=== PATIENT | male | born 1970 | race Caucasian/White ===

== ENCOUNTER 2017-06-07 05:16 | Day surgery (SDC) | payer MEDICAID ==
[2017-06-06 09:47] LABS: BASOPHILS 0.2 % (0-2); EOSINOPHILS 0.8 % (0-7); HEMATOCRIT 42.6 % (42.0-54.0); HEMOGLOBIN 13.8 g/dL (13.5-17.5); IMMATURE GRANULOCYTES 0.1 % (0-5); LYMPHOCYTES 21.4 % (15-50); MCH 28.4 pg (26.0-34.0); MCHC 32.4 g/dL (31.0-37.0); MCV 87.7 fL (80.0-100.0); MEAN PLATELET VOLUME 8.8 fL (7.4-10.4); MONOCYTES 9.8 % (2-11); NEUTROPHILS 67.7 % (40-80); PLATELET COUNT 287 10x3/uL (130-400); RBC 4.86 10x6/uL (4.20-6.10); RDW 14.9 % (11.5-14.5); WBC 10.7 10x3/uL (4.8-10.8)
[2017-06-06 10:01] LABS: ANION GAP 12.4 mmol/L (8-16); CALCIUM 9.5 mg/dL (8.5-10.1); CARBON DIOXIDE 25.9 mmol/L (21.0-32.0); CREATININE - SERUM 1.3 mg/dL (0.6-1.3); POTASSIUM - SERUM 4.3 mmol/L (3.5-5.1)
[~2017-06-07] VITALS: Ht 170.2 cm; Wt 87.5 kg
[~2017-06-07 05:16] MED LIST: GLUCOPHAGE500 MG PO
[2017-06-07] MEDS ORDERED: NEURONTIN 300300 MG PO (05:59)
[2017-06-07] MEDS ORDERED: NEURONTIN600 MG PO (06:00)
[2017-06-07] MEDS ORDERED: PROTONIX40 MG PO (06:00)
[2017-06-07] MEDS ORDERED: HYDROCHLOROTHIA25 MG PO (06:01)
[2017-06-07] MEDS ORDERED: ZOLOFT100 MG PO (06:01)
[2017-06-07] MEDS ORDERED: AZOR 5-40 MG TA1 TAB PO (06:01)
[2017-06-07] MEDS ORDERED: GLYBURIDE5 M1 PO (06:02)
[2017-06-07] MEDS ORDERED: TRAZODONE HCL50 MG PO (06:02)
[2017-06-07] MEDS ORDERED: EFFEXOR75 MG PO (06:02)
[2017-06-07 06:03] VITALS: BP 135/73; Ht 170.2 cm; Wt 87.5 kg
[2017-06-07] MEDS ORDERED: HYDROXYZINE HCL50 MG PO (09:27)
[2017-06-07] MEDS ORDERED: PERCOCET 5-3251 TAB PO (09:27)
--- NOTE | 2017-06-07 12:55 | NUR ---
1100 IV DC WITH CATHER TIP INTACT
--- NOTE | 2017-06-07 15:00 | OP ---
PATIENT NAME: Libia LAWRENCE MEDICAL RECORD: [id number] :74 LOCATION:[facility] ADMISSION DATE: SURGEON: KEIKO MACHADO DO DATE OF OPERATION: 06/07/2017 PROCEDURES PERFORMED: Left shoulder arthroscopy, distal clavicle resection, subacromial decompression, biceps tenodesis, and rotator cuff debridement. PREOPERATIVE DIAGNOSES: Left shoulder pain with partial rotator cuff tear, subacromial impingement, and AC joint arthritis. POSTOPERATIVE DIAGNOSES: Left shoulder pain with partial rotator cuff tear, subacromial impingement, AC joint arthritis, and SLAP tear type 2. SURGEON: Keiko Machado DO INDICATIONS: Mr. Lawrence is a 46-year-old male who presented to my office with left shoulder pain. He had an MRI that showed a partial rotator cuff tear. He had tried physical therapy and injections, which did not help. At the behest of the patient, he wanted to have surgery to have it fixed. Once he had told me this, I agreed to do the surgery, having failed nonoperative management. The patient was consented for the procedures of left shoulder arthroscopy, possible rotator cuff tear with subacromial decompression, distal clavicle resection, and biceps tenodesis. DESCRIPTION OF PROCEDURE: The patient was given a block in the preoperative area by anesthesia. Once this was done, the patient was taken to the operative suite, placed in the right lateral decubitus position, positioned, given general anesthetic, and was prepped. The left shoulder was prepped and draped in sterile fashion. Time-out was performed and everyone was in agreement with correct site and side. The patient was given clindamycin preoperatively. Once this was done, a 60 cc syringe on a spinal needle with normal saline was introduced into the shoulder joint itself to insufflate the joint. The #11 blade scalpel was then used to make a posterior portal and the scope trocar was placed into the shoulder joint itself. The scope was entered into the joint and a SLAP tear was seen immediately as well as fraying of the subscapularis. The diagnostic arthroscopy was done and anterior portal was made. A shaver was placed in and a probe. The biceps tendon was lifted off the attachment to the labrum, which was seen to show degenerative tear at superior labrum, anterior to posterior, type 2 tear. Once this was done, it seemed the humerus was rotated to see the extent of the subscapularis tear, which did not seem to be significant and the fraying was debrided. The supraspinatus was then probed as well and lifted. There was no significant tearing seen on the articular side of that tendon and the joint itself was also viewed and seemed to have no chondral damage whatsoever. Inferior pouch was also seen and pictures were taken. No loose bodies were seen there. Once this was done, the BirdBeak was placed through the anterior portal and the biceps tendon was tagged with a suture lasso and then a burner was used to do the biceps tenotomy at the junction of the labrum and the long head of the biceps. Then, the scope was entered in the subacromial space and the rotator cuff was inspected on the bursal side, which was not seen to have a tear. Certainly, no full-thickness tears were seen nor any partial thickness was seen on the supraspinatus. The attention was then drawn to the acromion and was debrided first with the burner to get a clear picture of it as well as the AC joint itself. The AC joint was seen to be very narrowed and not having much space. The bur was then taken once the lateral OPERATIVE REPORT [id number] Libia LAWRENCE portal was established and a subacromial decompression was performed, taking off the spur of the acromion as well as opening the AC joint to 7 mm, taking some distal clavicle as well as a small portion of the acromion in order to open the joint up. Once this was done, a shaver was put in and a bursectomy was performed. Again, the rotator cuff was inspected and we did not see any full-thickness tears or even partial-thickness tears of the supraspinatus. Once this was done, the scope was removed and attention was then drawn to the bicep tenodesis site. A small incision was made just at where the pectoralis major tendon insertion of the humerus. Blunt dissection was made down to the humerus itself and the bicep tendon was pulled from that incision. Then, a whipstitch with the suture and a button was placed on that. A drill was then used to make a unicortical hole in the humerus for placement of the bicep tendon and the suture was toggled. The button flipped in the intramedullary canal and suture was toggled to tighten up the biceps. A free needle was then used to use one of the free end of the whipstitch sutures, sutured to the biceps tendon, and a knot was tied on top of the tendon itself, securing it to the bone. The excess tendon and the suture were cut at that time. The wound was then irrigated copiously with normal saline and the skin was closed with 2-0 Vicryl inverted interrupted and then 4-0 Monocryl was run subcuticularly over that site. At the shoulder, 3 portals were then closed with simple and inverted interrupted stitch using 4-0 Monocryl. Dermabond was then placed over the biceps tenodesis site and Steri-Strips were placed over the portal sites of the shoulder. Adaptic, 4 x 4s, and Tegaderm were placed over each of the sites. The patient was placed in a sling, awakened, and taken to recovery in stable condition. Blood loss was minimal. TRANSINT:[id number] Voice Confirmation ID: [id number] DOCUMENT ID: [id number] KEIKO MACHADO DO at 1500 CC: [id number] DICTATION DATE: 06/07/17 0937 MASTER BREWER: 06/07/17 1239 [facility] 06/07/17 [facility] [address] [place] [address]
== END 2017-06-07 12:00 | disposition home or self-care (01) ==
LOC: D.OPS 05:16 → D.PAN 07:30 → D.OPS 12:00
PROVIDERS: Anesthesiology
DX: M75.102 Unspecified rotator cuff tear or rupture of left shoulder, not specified as traumatic (principal); M25.812 Other specified joint disorders, left shoulder; M19.012 Primary osteoarthritis, left shoulder; M25.512 Pain in left shoulder; I10 Essential (primary) hypertension; E11.9 Type 2 diabetes mellitus without complications; Z01.812 Encounter for preprocedural laboratory examination

== ENCOUNTER → 2017-11-14 10:54 | Outpatient (CLI) | payer MEDICAID ==
[2017-06-07 06:03] VITALS: BMI 30.3
[~2017-11-14 10:54] MED LIST changes: +AZOR 5-40 MG TA1 TAB PO; +EFFEXOR75 MG PO; +GLYBURIDE5 M1 PO; +HYDROCHLOROTHIA25 MG PO; +HYDROXYZINE HCL50 MG PO; +NEURONTIN 300300 MG PO; +NEURONTIN600 MG PO; +PERCOCET 5-3251 TAB PO; +PROTONIX40 MG PO; +TRAZODONE HCL50 MG PO; +ZOLOFT100 MG PO
== END | disposition home or self-care (01) ==
LOC: D.MRI 10:54
DX: M75.112 Incomplete rotator cuff tear or rupture of left shoulder, not specified as traumatic (principal)

== ENCOUNTER → 2018-02-04 07:28 | Outpatient (CLI) | payer MEDICAID ==
[2017-06-07 06:03] VITALS: BMI 30.3
== END | disposition home or self-care (01) ==
LOC: D.US 07:28
DX: R10.84 Generalized abdominal pain (principal)

== ENCOUNTER 2018-03-27 06:05 | Day surgery (SDC) | payer MEDICAID ==
[2018-03-25 11:33] LABS: HEMATOCRIT 43.8 % (42.0-54.0); HEMOGLOBIN 14.7 g/dL (13.5-17.5); MCH 28.9 pg (26.0-34.0); MCHC 33.6 g/dL (31.0-37.0); MCV 86.2 fL (80.0-100.0); MEAN PLATELET VOLUME 9.1 fL (7.4-10.4); RBC 5.08 10x6/uL (4.20-6.10); RDW 12.9 % (11.5-14.5); WBC 11.7 10x3/uL (4.8-10.8)
[2018-03-25 11:47] LABS: ANION GAP 10.8 mmol/L (8-16); CARBON DIOXIDE 27.7 mmol/L (21.0-32.0); CREATININE - SERUM 1.6 mg/dL (0.6-1.3); POTASSIUM - SERUM 4.5 mmol/L (3.5-5.1)
[~2018-03-27] VITALS: Ht 170.2 cm; Wt 88.0 kg
--- NOTE | ~2018-03-27 | OP ---
PATIENT NAME: Libia LAWRENCE MEDICAL RECORD: [id number] :74 LOCATION:[facility] ADMISSION DATE: SURGEON: DARIAN PALACIO MD DATE OF OPERATION: 03/27/2018 PREOPERATIVE DIAGNOSIS: Recurrent rotator cuff tear of the left shoulder with residual impingement. POSTOPERATIVE DIAGNOSIS: Recurrent rotator cuff tear of the left shoulder with residual impingement. PROCEDURES: 1. Arthroscopic rotator cuff repair. 2. Subacromial decompression with acromioplasty and bursectomy. SURGEON: Darian Palacio MD ANESTHESIA: General. INTRAOPERATIVE COMPLICATIONS: None. SUMMARY OF PATHOLOGIC FINDINGS: Unfortunately, the patient did indeed have a rotator cuff tear at the area just posterior to the biceps groove. Biceps tenodesis had previously been performed; however, the patient did have a large amount of impinging acromion. OPERATIVE SUMMARY IN DETAIL: After obtaining the appropriate preoperative orthopedic surgery consent as well as anesthetic consultation, evaluation and clearance, the patient was brought to the operating room and placed on the operating table in supine position. After general laryngeal mask airway was administered the patient was placed in right lateral decubitus position. All pressure points well padded to include down leg peroneal pad as well as axillary roll. The patient was held firmly to the operating table using the vacuum pack suction system. The patient's left upper extremity and shoulder were then prepped and draped in routine sterile fashion. The patient's arm was held in the Arthrex holding device, 30 degrees of forward flexion, 30 degrees of abduction with 10 pounds of traction laterally. Arthroscopy was established in the glenohumeral joint from the posterior portal. Diagnostic arthroscopy did reveal the patient to have a full thickness rotator cuff tear as described above. No substantial intra-articular pathology. Transarthroscopic rotator cuff portal was created through which the undersurface of the rotator cuff was debrided back to viable appearing rotator cuff parts. Arthroscopy was then established in the subacromial space. While in the subacromial space, [place] tissue ablation system was utilized to denude the undersurface of the acromion of all soft tissue elements. A 5-0 barrel bur was used to perform acromioplasty at the level of acromioclavicular joint. Attention was then returned to the rotator cuff. Further decortication of the supraspinatus tendinous footprint was carried out with a resector and a 5.0 barrel bur. A #2 Arthrex FiberTape was then placed in inverted mattress fashion anchored laterally with a 5.5 SwiveLock from Arthrex. Secondarily, the small leaflet anteriorly, the #2 FiberWire from the previously placed anchor was then passed and it too was anchored with a 4.75 SwiveLock. Having completed the rotator cuff repair, arthroscopy portals were closed in routine interrupted fashion using 4-0 Prolene. Sterile dressings were applied. The patient was awakened and taken to the recovery room in stable condition. All final needle and sponge counts were OPERATIVE REPORT [id number] Libia LAWRENCE correct. TRANSINT:[id number] Voice Confirmation ID: [id number] DOCUMENT ID: [id number] HAKEEM SHAH, DARIAN KIM at 1826 CC: [id number] DICTATION DATE: 03/31/18 0925 RELISH MAKER: 03/31/[address] [facility] 03/27/18 [id number] [place] [address]
[~2018-03-27 06:05] MED LIST changes: +HYDROCODONE-APA1 TAB PO
[2018-03-27 06:51] VITALS: Ht 170.2 cm; Wt 88.0 kg
== END 2018-03-27 11:30 | disposition home or self-care (01) ==
LOC: D.OPS 06:05
PROVIDERS: Anesthesiology
DX: M75.122 Complete rotator cuff tear or rupture of left shoulder, not specified as traumatic (principal); M75.42 Impingement syndrome of left shoulder; Z01.812 Encounter for preprocedural laboratory examination

== ENCOUNTER → 2018-07-03 10:38 | Outpatient (CLI) | payer MEDICAID ==
[2018-03-27 06:51] VITALS: BMI 30.4
== END | disposition home or self-care (01) ==
LOC: D.MRI 10:38
DX: M75.102 Unspecified rotator cuff tear or rupture of left shoulder, not specified as traumatic (principal)

== ENCOUNTER → 2018-10-13 14:55 | Outpatient (CLI) | payer MEDICAID ==
[2018-03-27 06:51] VITALS: BMI 30.4
== END | disposition home or self-care (01) ==
LOC: D.MRI 14:55
DX: M23.303 Other meniscus derangements, unspecified medial meniscus, right knee (principal)

== ENCOUNTER 2019-02-02 07:15 | Day surgery (SDC) | payer MEDICAID ==
[2019-01-30 10:26] LABS: MCH 28.6 pg (26.0-34.0); MCHC 32.6 g/dL (31.0-37.0); MCV 87.8 fL (80.0-100.0); MEAN PLATELET VOLUME 8.6 fL (7.4-10.4); RBC 4.9 10x6/uL (4.20-6.10); RDW 14.2 % (11.5-14.5); WBC 8.9 10x3/uL (4.8-10.8)
[2019-01-30 10:39] LABS: CALC OSMOLALITY 279 mosm/kg (275-300); CALCIUM 8.8 mg/dL (8.5-10.1); CARBON DIOXIDE 26.8 mmol/L (21.0-32.0); CHLORIDE - SERUM 106 mmol/L (98-107); CREATININE - SERUM 1.1 mg/dL (0.6-1.3); GLUCOSE 67 mg/dL (74-106); SODIUM 141 mmol/L (136-145); UREA NITROGEN 16 mg/dL (7-18); eGFR NON AFRICAN AMERICAN 76 mL/min (90-120)
[~2019-02-02] VITALS: Ht 170.2 cm; Wt 95.3 kg
[2019-02-02] MEDS ORDERED: JANUMET 50-5001 EAC1 PO (07:43)
[2019-02-02] MEDS ORDERED: SEROQUEL25 MG PO (07:44)
[2019-02-02 07:45] VITALS: BP 84/64; Ht 170.2 cm; Wt 95.3 kg
[2019-02-02] MEDS ORDERED: HYDROCODON-ACE1 EA10 PO (11:15)
--- NOTE | 2019-02-02 11:48 | NUR ---
NPA IN RT NARE ON ADMIT
--- NOTE | 2019-02-02 16:08 | NUR ---
1600 VOIDED IN BATHROOM. DENIES PAIN. DRESSING CDI. INSTRUCTIONS GIVEN AND IV REMOVED. PT INSTRUCTED ON HOW TO USE WALKER
--- NOTE | 2019-02-09 07:51 | OP ---
PATIENT NAME: Libia LAWRENCE MEDICAL RECORD: [id number] :74 LOCATION:D[facility] ADMISSION DATE: SURGEON: DARIAN PALACIO MD DATE OF OPERATION: 02/02/2019 PREOPERATIVE DIAGNOSES: 1. Right lateral meniscus tear. 2. Synovitis 3. Chondromalacia. POSTOPERATIVE DIAGNOSES: 1. Right lateral meniscus tear. 2. Synovitis 3. Chondromalacia. PROCEDURES: 1. Right knee arthroscopy with arthroscopic partial lateral meniscectomy. 2. Arthroscopic synovectomy. 3. Arthroscopic chondroplasty. SURGEON: Darian Palacio MD ANESTHESIA: General. INTRAOPERATIVE COMPLICATIONS: None. SUMMARY OF PATHOLOGIC FINDINGS: The patient had substantial synovitis likely from the torn meniscus as well as chondromalacia of patellofemoral joint. OPERATIVE SUMMARY IN DETAIL: After obtaining the appropriate preoperative orthopedic surgery consent as well as anesthetic consultation, evaluation and clearance, the patient was brought to the operating room and placed on the operating table in supine position. After general laryngeal mask airway was administered, tourniquet was placed about the proximal aspect of the right lower extremity. Right lower extremity was then prepped and draped in routine sterile fashion. The leg was elevated and exsanguinated, tourniquet inflated to 350 mmHg. Routine inferolateral portal was established followed by superomedial portal and inferomedial portal. Diagnostic arthroscopy revealed the above findings. Attention was first turned to the lateral meniscal tear. Combination of arthroscopic meniscotomes as well as arthroscopic resector were utilized to debride the patient's lateral meniscus. No significant chondromalacia was seen in the lateral compartment or the medial compartment. Attention was turned to the patellofemoral joint. Chondroplasty was performed of the patellofemoral joint for the trochlear groove, taken down any areas of unstable articular cartilage and debriding it back to smooth cartilaginous borders. The suprapatellar pouch as well as the lateral gutters had substantial amount of synovitis. Arthroscopy was then utilized with the resector to take down substantial amount of the synovitis in both the suprapatellar pouch as well as the lateral gutters. Having completed this, the knee was insufflated with 30 cc of 0.25% Marcaine with epinephrine as well as 80 mg of Depo-Medrol. Arthroscopy portals were closed in routine interrupted fashion using 4-0 Prolene. Sterile dressings were applied. The patient was awakened, taken to recovery room in stable condition. All final needle and sponge counts were correct. TRANSINT:[id number] Voice Confirmation ID: [id number] DOCUMENT ID: [id number] OPERATIVE REPORT [id number] Libia LAWRENCE MD, DARIAN KIM at 0751 CC: [id number] DICTATION DATE: 02/06/19 1254 MANUFACTURING TEST TECHNICIAN: 02/06/19 1615 [facility] 02/02/[address] [address]
== END 2019-02-02 16:00 | disposition home or self-care (01) ==
LOC: D.OPS 07:15 → D.PAN 07:30 → D.OPS 09:30
PROVIDERS: Anesthesiology; ATTEND Orthopaedic Surgery
DX: S83.281A Other tear of lateral meniscus, current injury, right knee, initial encounter (principal); M65.9 Synovitis and tenosynovitis, unspecified; M22.41 Chondromalacia patellae, right knee; Z01.812 Encounter for preprocedural laboratory examination

== ENCOUNTER → 2019-05-11 17:14 | Outpatient (CLI) | payer OTHER ==
[2019-02-02 07:45] VITALS: BMI 32.9
[~2019-05-11 17:14] MED LIST changes: +CHLORTHALIDONE50 MG PO; +HYDROCODON-ACE1 EA10 PO; +JANUMET 50-5001 EAC1 PO; +MELOXICAM TAB 15M PO; +SEROQUEL25 MG PO; +TRAZODONE HCL150 MG PO; +TRAZODONE TAB 50M PO; +ZOCOR20 MG PO
[2019-05-13 12:57] LABS: PROTEIN - BODY FLUID 4.9 G/DL
[2019-05-13 14:39] LABS: MACROPHAGES BF 4 %; NEUT - BF 85 %
[2019-05-18 17:08] LABS: AEROBE ID Final report (())
== END | disposition home or self-care (01) ==
LOC: D.LABREF 17:14
PROVIDERS: ATTEND Orthopaedic Surgery
DX: M25.561 Pain in right knee (principal); M25.461 Effusion, right knee

== ENCOUNTER 2019-05-19 08:00 | Outpatient (CLI) | payer MEDICARE ==
[2019-02-02 07:45] VITALS: Wt 95.3 kg
[~2019-05-19 08:00] MED LIST changes: -CHLORTHALIDONE50 MG PO; -MELOXICAM TAB 15M PO; -TRAZODONE HCL150 MG PO; -TRAZODONE TAB 50M PO; -ZOCOR20 MG PO
[2019-05-19] MEDS ORDERED: ZOCOR20 MG PO (13:07)
[2019-05-19 14:29] LABS: HEMATOCRIT 43.1 % (42.0-54.0); HEMOGLOBIN 14.9 g/dL (13.5-17.5); MCH 29.6 pg (26.0-34.0); MCHC 34.6 g/dL (31.0-37.0); MCV 85.5 fL (80.0-100.0); MEAN PLATELET VOLUME 8.8 fL (7.4-10.4); RBC 5.04 10x6/uL (4.20-6.10); RDW 13.7 % (11.5-14.5); WBC 14.3 10x3/uL (4.8-10.8)
[2019-05-19 14:41] LABS: ANION GAP 13.9 mmol/L (8-16); CALCIUM 9.1 mg/dL (8.5-10.1); CARBON DIOXIDE 28.2 mmol/L (21.0-32.0); CREATININE - SERUM 1.5 mg/dL (0.6-1.3); POTASSIUM - SERUM 4.1 mmol/L (3.5-5.1)
[2019-05-27] MEDS ORDERED: CHLORTHALIDONE50 MG PO (13:24)
[2019-05-27] MEDS ORDERED: TRAZODONE TAB 50M PO (13:25)
[2019-05-27] MEDS ORDERED: TRAZODONE HCL150 MG PO (13:25)
[2019-05-27] MEDS ORDERED: MELOXICAM TAB 15M PO (13:26)
== END 2019-05-19 08:01 | disposition home or self-care (01) ==
LOC: D.OPS 08:00 → EDSTATUS 05-21 11:45 → D.OPS 05-21 11:45 → D.PAN 05-21 11:45
PROVIDERS: Anesthesiology; ATTEND Orthopaedic Surgery
DX: M00.861 Arthritis due to other bacteria, right knee (principal)

== ENCOUNTER 2019-05-28 09:50 | Day surgery (SDC) | payer MEDICARE ==
[~2019-05-28] VITALS: Ht 170.2 cm; Wt 95.3 kg
[~2019-05-28 09:50] MED LIST changes: +CHLORTHALIDONE50 MG PO; +MELOXICAM TAB 15M PO; +TRAZODONE HCL150 MG PO; +TRAZODONE TAB 50M PO; +ZOCOR20 MG PO
[2019-05-28 09:57] LABS: CALCIUM 9.4 mg/dL (8.5-10.1); CARBON DIOXIDE 30.9 mmol/L (21.0-32.0); CREATININE - SERUM 1.4 mg/dL (0.6-1.3); POTASSIUM - SERUM 4.9 mmol/L (3.5-5.1)
[2019-05-28 10:15] VITALS: BP 119/78; Ht 170.2 cm; Wt 95.3 kg
[2019-05-28 10:48] LABS: BASOPHILS 0.2 % (0-2); EOSINOPHILS 3.4 % (0-7); HEMOGLOBIN 13.5 g/dL (13.5-17.5); IMMATURE GRANULOCYTES 0.2 % (0-5); LYMPHOCYTES 15.8 % (15-50); MCH 29.1 pg (26.0-34.0); MCHC 33.8 g/dL (31.0-37.0); MCV 86.2 fL (80.0-100.0); MEAN PLATELET VOLUME 9.2 fL (7.4-10.4); MONOCYTES 9.6 % (2-11); NEUTROPHILS 70.8 % (40-80); PLATELET COUNT 283 10x3/uL (130-400); RBC 4.64 10x6/uL (4.20-6.10); RDW 13.6 % (11.5-14.5); WBC 12.1 10x3/uL (4.8-10.8)
[2019-05-28] MEDS ORDERED: HYDROCODON-ACE1 EA10 PO (14:04)
[2019-05-28 15:33] LABS: NEUT - BF 95 %
--- NOTE | 2019-05-28 16:25 | NUR ---
PIV DC'D WITH TIP INTACT. DISCHARGE INSTRUCTIONS REVIEWED WITH PATIENT. PATIENT EATING CUP OF JELLO, SITTING ON SIDE OF BED. ASSISTED PATIENT TO DRESS IN PERSONAL CLOTHING 1645 DISCHARGED HOME VIA WHEELCHAIR TO PRIVATE VEHICLE WITH SON-IN-LAW
--- NOTE | 2019-05-31 14:19 | OP ---
PATIENT NAME: JOCELIN LAWRENCE JR MEDICAL RECORD: [id number] :74 LOCATION:[facility] ADMISSION DATE: SURGEON: DARIAN PALACIO MD DATE OF OPERATION: 05/28/2019 PREOPERATIVE DIAGNOSIS: Septic arthritis of the right knee. POSTOPERATIVE DIAGNOSIS: Septic arthritis of the right knee. PROCEDURE: Arthroscopic irrigation and debridement of septic arthritis of the right knee. SURGEON: Darian Palacio MD ANESTHESIA: General. INTRAOPERATIVE COMPLICATIONS: None. SUMMARY OF PATHOLOGIC FINDINGS: The patient did have what appeared to be some residual infection. INDICATIONS: This is a 48-year-old gentleman with some degree of mental health issue who had a swollen knee aspirate did show gram-positive cocci, which has essentially grown out a staph organism. This patient has been very evasive about coming to the operating room and has been on oral antibiotics for approximately 14 days. He finally came to the operating room and would not stay postoperatively. We agreed to try irrigation with oral antibiotics as the organism does seem sensitive to the antibiotics he is taking. OPERATIVE SUMMARY IN DETAIL: After obtaining the appropriate preoperative orthopedic surgery consent as well as anesthetic consultation, evaluation and clearance, the patient was brought to the operating room and placed on the operating table in supine position. After adequate general laryngeal mask airway was administered, tourniquet was placed about the proximal aspect of the right lower extremity. Right lower extremity was then prepped and draped in routine sterile fashion. The leg was elevated and exsanguinated, tourniquet was inflated to 350 mmHg. Routine inferolateral portal was established through which a large degree of synovial fluid was collected and sent for synovial fluid analysis. The knee was insufflated and the remainder of the portals were created. Serial and sequential debridement of the entire knee including medial and lateral gutter, suprapopliteal fossa as well as underneath and above the meniscus were all gently debrided using the resector. Total of approximately 12 liters of fluid was run while using a resector to debride and irrigate all portions of the knee. Having completed this, arthroscopy portals were closed in routine interrupted fashion using 4-0 Prolene. Sterile dressings were applied. Tourniquet was deflated. The patient was awakened and taken to recovery room in stable condition. All final needle and sponge counts were correct. TRANSINT:[id number] Voice Confirmation ID: [id number] DOCUMENT ID: [id number] OPERATIVE REPORT [id number] JOCELIN LAWRENCE JR, MD, DARIAN KIM at 1419 CC: [id number] DICTATION DATE: 05/29/19919 MANAGER ORACLE DATABASE: 05/29/19 1100 [facility] 05/28/19 [place] [id number] [place] [id number]
== END 2019-05-28 16:45 | disposition home or self-care (01) ==
LOC: D.OPS 09:50 → D.PAN 12:00 → D.OPS 12:00
PROVIDERS: Anesthesiology; ATTEND Orthopaedic Surgery
DX: M00.061 Staphylococcal arthritis, right knee (principal); Z01.812 Encounter for preprocedural laboratory examination

== ENCOUNTER → 2019-06-03 17:01 | Outpatient (CLI) | payer MEDICARE ==
[2019-05-28 10:15] VITALS: BMI 32.9
[2019-06-03 17:27] LABS: BASOPHILS 0.3 % (0-2); EOSINOPHILS 3.2 % (0-7); HEMATOCRIT 39.1 % (42.0-54.0); HEMOGLOBIN 12.7 g/dL (13.5-17.5); IMMATURE GRANULOCYTES 0.2 % (0-5); LYMPHOCYTES 33.5 % (15-50); MCH 29.1 pg (26.0-34.0); MCHC 32.5 g/dL (31.0-37.0); MCV 89.5 fL (80.0-100.0); MEAN PLATELET VOLUME 9.1 fL (7.4-10.4); MONOCYTES 10.5 % (2-11); NEUTROPHILS 52.3 % (40-80); RBC 4.37 10x6/uL (4.20-6.10); RDW 14.2 % (11.5-14.5); WBC 6.6 10x3/uL (4.8-10.8)
[2019-06-03 17:33] LABS: PLATELET COUNT 67 10x3/uL (130-400)
[2019-06-03 17:34] LABS: ERYTHROCYTE SEDIMENTATION RATE QNS mm/hr (0-15)
[2019-06-03 17:49] LABS: PLATELET ESTIMATE DECREASED
[2019-06-03 17:51] LABS: ANISOCYTOSIS OCC
[2019-06-03 17:52] LABS: ROULEAUX OCC
== END | disposition home or self-care (01) ==
LOC: D.LABREF 17:01
PROVIDERS: ATTEND Clinical Nurse Specialist Family Health
DX: M25.561 Pain in right knee (principal)

== ENCOUNTER 2019-07-02 08:43 | Inpatient (IN) | payer MEDICARE ==
[~2019-07-02] VITALS: Ht 170.2 cm; Wt 95.5 kg
[2019-07-02 09:10] LABS: BASOPHILS 0.4 % (0-2); EOSINOPHILS 2.7 % (0-7); HEMATOCRIT 37.6 % (42.0-54.0); IMMATURE GRANULOCYTES 0.3 % (0-5); LYMPHOCYTES 25.3 % (15-50); MCH 28.8 pg (26.0-34.0); MCHC 31.9 g/dL (31.0-37.0); MCV 90.4 fL (80.0-100.0); MEAN PLATELET VOLUME 8.5 fL (7.4-10.4); MONOCYTES 9.9 % (2-11); NEUTROPHILS 61.4 % (40-80); RBC 4.16 10x6/uL (4.20-6.10); RDW 13.5 % (11.5-14.5); WBC 7.6 10x3/uL (4.8-10.8)
[2019-07-02 09:13] LABS: PLATELET COUNT 344 10x3/uL (130-400)
[2019-07-02 09:23] LABS: ANION GAP 11.6 mmol/L (8-16); CALCIUM 8.9 mg/dL (8.5-10.1); CARBON DIOXIDE 30.7 mmol/L (21.0-32.0); CREATININE - SERUM 1.7 mg/dL (0.6-1.3); POTASSIUM - SERUM 5.3 mmol/L (3.5-5.1)
[2019-07-02 10:03] VITALS: BP 115/71
[2019-07-02 11:56] LABS: PROTEIN - BODY FLUID 5.7 G/DL
[2019-07-02 12:03] LABS: NEUT - BF 92 %
[2019-07-02 12:15] VITALS: BP 129/96
--- NOTE | 2019-07-02 12:15 | NUR ---
PATIENT IN BED WITH IV INTACT. NO COMPLAINTS OR SIGNS OF DISTRESS. VS STABLE. CALL LIGHT WITHIN REACH.
[2019-07-02 12:23] VITALS: BP 125/91
--- NOTE | 2019-07-02 12:45 | NUR ---
PATIENT IN BED WITH IV INTACT. NO COMPLAINTS OR SIGNS OF DISTRESS. FAMILY AT BEDSIDE. CALL LIGHT WITHIN REACH.
--- NOTE | 2019-07-02 14:00 | NUR ---
PATIENT TOLERATED REGULAR DIET AT THIS TIME. IV INTACT. NO COMPLAINTS OR SIGNS OF DISTRESS. FAMILY AT BEDSIDE. CALL LIGHT WITHIN REACH.
[2019-07-02 14:13] VITALS: BP 129/96; Ht 170.2 cm; Wt 95.5 kg
--- NOTE | 2019-07-02 16:30 | NUR ---
PATIENT IN BED WITH IV INTACT. ALERT ORIENTED NO COMPLAINTS. FAMILY AT BEDSIDE. CALL LIGHT WITHIN REACH.
[2019-07-02 17:01] VITALS: BP 120/71
--- NOTE | 2019-07-02 19:00 | NUR ---
BEDSIDE REPORT RECEIVED AND CARE OF PT ASSUMED. PT LYING IN HIGH CHUNG'S POSITION WATCHING TV. IV TO LEFT WRIST PATENT WITH 1/2 NS INFUSING AT 75 ML/HR. DRESSING ON RIGHT KNEE DRY AND INTACT.
--- NOTE | 2019-07-02 19:23 | NUR ---
PATIENT SITTING UP IN BED WITH NO COMPLAINTS AT THIS TIME. IV INTACT. CALL LIGHT WITHIN REACH.
[2019-07-02 20:00] VITALS: BP 116/73
--- NOTE | 2019-07-02 21:28 | NUR ---
HS MEDICATIONS GIVEN TO INCLUDE PERCOCET PO FOR PAIN AND BENADRYL TO HELP SLEEP, PER REQUEST, PER PRN ORDERS. WILL MONITOR FOR EFFECTIVENESS.
--- NOTE | 2019-07-03 03:41 | NUR ---
GAVE PERCOCET PO PER REQUEST FOR PAIN. PT ASKING ABOUT HIS HOME MEDICATIONS....SAYS HE HASN'T SLEPT WELL TONIGHT BECAUSE HE HASN'T BEEN GIVEN HIS HOME MEDS. HOME MEDICATION RECONCILLIATION COMPLETED. WILL REQUEST MD TO ADDRESS IN AM.
[2019-07-03] MEDS ORDERED: SEROQUEL200 MG PO (03:46)
[2019-07-03] MEDS ORDERED: BUSPIRONE HCL7.5 MG PO (03:47)
[2019-07-03 04:00] VITALS: BP 120/83
[2019-07-03 06:01] LABS: HEMATOCRIT 34.3 % (42.0-54.0); HEMOGLOBIN 10.9 g/dL (13.5-17.5); MCH 28.5 pg (26.0-34.0); MCHC 31.8 g/dL (31.0-37.0); MCV 89.6 fL (80.0-100.0); MEAN PLATELET VOLUME 8.6 fL (7.4-10.4); RBC 3.83 10x6/uL (4.20-6.10); RDW 13.3 % (11.5-14.5); WBC 8.6 10x3/uL (4.8-10.8)
[2019-07-03 06:22] LABS: ANION GAP 11.9 mmol/L (8-16); CARBON DIOXIDE 26.2 mmol/L (21.0-32.0); CREATININE - SERUM 1.6 mg/dL (0.6-1.3)
[2019-07-03 06:27] LABS: POTASSIUM - SERUM 4.1 mmol/L (3.5-5.1)
--- NOTE | 2019-07-03 07:29 | NUR ---
BEDSIDE REPORT RECIEVED, ASSUMED CARE. PATIENT IN BED WITH IV INTACT. EYES OPEN WITH NO COMPLAINTS. DENIES ANY NEEDS AT THIS TIME. CALL LIGHT WITHIN REACH.
[2019-07-03 08:15] VITALS: BP 129/89
--- NOTE | 2019-07-03 10:52 | NUR ---
PATIENT SITTING UP IN BED WITH NO COMPLAINTS OR SIGNS OF DISTRESS. STATED NAUSEA IS BETTER. IV INTACT. CALL LIGHT WITHIN REACH.
--- NOTE | 2019-07-03 13:08 | NUR ---
PATIENT SITTING UP ON SIDE OF BED EATING. NO PROBLEMS OR N/V AT THIS TIME. I VINTACT. CALL LIGHT WTHIN REACH.
[2019-07-03 13:56] LABS: ERYTHROCYTE SEDIMENTATION RATE 18 mm/hr (0-15)
[2019-07-03 16:05] VITALS: BP 109/70
[2019-07-03 16:31] LABS: % SATURATION 15 % (15-55); IRON 44 ug/dl (35-150); TOTAL IRON BIND CAPACITY 282 ug/dl (260-445); UNSAT IRON BIND CAPACITY 238 ug/dl (150-375)
[2019-07-03 17:12] VITALS: BP 109/70
--- NOTE | 2019-07-03 18:00 | NUR ---
PATIENT OUT OF SHOWER AND DRESSING AT THIS TIME. ASSISTANCE AT BEDSIDE.
--- NOTE | 2019-07-03 18:20 | NUR ---
PATIENT VOMITTED AGAIN AT THIS TIME. RECIEVED PERCOCET AT 1651. EXPLAINED TO PATIENT COULD POSSIBLY BE VAISHALI NMEDS. VERBALIZED UNDERSTANDING. NO COMPLAINTS OR PROBLEMS NOTED. IV INTACT. CALL IGHT WITHIN REACH.
--- NOTE | 2019-07-03 18:38 | NUR ---
PATIENT SITTING UP IN BED WITH IV INTACT. NO COMPLAINTS. CALL LIGHT WITHIN REACH.
--- NOTE | 2019-07-03 19:00 | NUR ---
BEDSIDE REPORT RECEIVED AND CARE OF PT ASSUMED. PT LYING IN SUPINE POSITION, C/O NAUSEA. PT REMOVED DRESSING ON RIGHT KNEE...INCISIONS CLEAN AND DRY WITH NO DRAINAGE...PT REQUESTS TO LEAVE OFF. IV TO LEFT FA PATENT WITH 1/2 NS INFUSING AT 75 ML/HR.
--- NOTE | 2019-07-03 19:15 | NUR ---
GAVE ZOFRAN PO FOR C/O NAUSEA.
[2019-07-03 20:00] VITALS: BP 125/84
--- NOTE | 2019-07-03 20:39 | NUR ---
COLLECTED URINE FOR ORDERED STUDIES AND DELIVERED TO LAB.
[2019-07-03 20:48] LABS: APPEARANCE CLEAR (CLEAR); BILIRUBIN NEGATIVE (NEGATIVE); COLOR YELLOW (YELLOW); GLUCOSE NEGATIVE (NEGATIVE); KETONE NEGATIVE (NEGATIVE); NITRITE NEGATIVE (NEGATIVE); PROTEIN NEGATIVE (NEGATIVE); UROBILINOGEN NORMAL (NORMAL)
--- NOTE | 2019-07-03 21:04 | NUR ---
HS MEDICATIONS GIVEN WITH SIPS OF LEMON [place]-BILOXI SODA....PT KEPT DOWN APPROX 1 MINUTE AND BEGAN VOMITING.
--- NOTE | 2019-07-03 21:34 | NUR ---
GAVE PHENERGAN 25 MG IM PER VERBAL ORDER FROM KENNEY CARLTON APN FOR NAUSEA / VOMITING.
--- NOTE | 2019-07-03 23:00 | NUR ---
PT RESTING QUIETLY ON RIGHT SIDE WITH EYES CLOSED AND EASY RESPIRATIONS. WILL CONTINUE TO MONITOR FOR NEEDS.
--- NOTE | 2019-07-04 01:20 | NUR ---
PT SLEEPING QUIETLY WITH UNLABORED BREATHING ON RIGHT SIDE. WILL CONTINUE TO MONITOR FOR NEEDS.
[2019-07-04 06:15] LABS: BASOPHILS 0.4 % (0-2); EOSINOPHILS 2.3 % (0-7); HEMATOCRIT 33.5 % (42.0-54.0); HEMOGLOBIN 10.5 g/dL (13.5-17.5); IMMATURE GRANULOCYTES 0.1 % (0-5); LYMPHOCYTES 28.1 % (15-50); MCH 28.2 pg (26.0-34.0); MCHC 31.3 g/dL (31.0-37.0); MCV 90.1 fL (80.0-100.0); MEAN PLATELET VOLUME 8.7 fL (7.4-10.4); MONOCYTES 14.3 % (2-11); NEUTROPHILS 54.8 % (40-80); PLATELET COUNT 253 10x3/uL (130-400); RBC 3.72 10x6/uL (4.20-6.10); RDW 13.3 % (11.5-14.5); WBC 7.4 10x3/uL (4.8-10.8)
[2019-07-04 06:31] LABS: ANION GAP 11.4 mmol/L (8-16); CALCIUM 8.5 mg/dL (8.5-10.1); CARBON DIOXIDE 27.6 mmol/L (21.0-32.0); CREATININE - SERUM 1.5 mg/dL (0.6-1.3)
[2019-07-04 06:33] VITALS: BP 121/68
--- NOTE | 2019-07-04 08:00 | NUR ---
ASSESSMENT PER FLOW SHEET. PT IS WITHOUT DISTRESS.COMPLAINING OF NAUSEA THS AM.MOITOR FOR NEEDS.
--- NOTE | 2019-07-04 08:30 | NUR ---
COMPLAINS OF NAUSEA AND REFUSED BREAKFAST. MEDS ORDERED FOR NAUSEA.MEDS PER PT WHEN NAUSEA RESOLVED
[2019-07-04 09:18] VITALS: BP 113/79; BP 135/67
--- NOTE | 2019-07-04 13:00 | NUR ---
HAS EATEN SOME LUNCH.NAUSEA GETTING BETTER. MONITOR
[2019-07-04 13:33] VITALS: BP 95/63
[2019-07-04 18:07] VITALS: BP 100/65
--- NOTE | 2019-07-04 18:23 | NUR ---
PAIN MEDS ORDERED PER MAR PER PT REQUEST.LESS NAUSEA.CONT PLAN OF CARE
--- NOTE | 2019-07-04 19:00 | NUR ---
BEDSIDE REPORT RECEIVED AND CARE OF PT ASSUMED. PT LYING ON RIGHT SIDE WITH EYES CLOSED. IV TO LEFT FA PATENT WITH 1/2 NS INFUSING AT 100 ML/HR. WILL MONITOR FOR NEEDS.
[2019-07-04 21:04] VITALS: BP 96/65
--- NOTE | 2019-07-04 22:15 | NUR ---
HS MEDICATIONS GIVEN. HELD TRAZADONE 150 MG PO DUE TO PT'S BLOOD PRESSURE BEING LOW. WILL CONTINUE TO MONITOR CLOSELY.
[2019-07-05 00:57] VITALS: BP 105/66
[2019-07-05 04:15] VITALS: BP 95/62
[2019-07-05 07:00] LABS: BASOPHILS 0.3 % (0-2); EOSINOPHILS 3.2 % (0-7); HEMATOCRIT 35.4 % (42.0-54.0); HEMOGLOBIN 11.1 g/dL (13.5-17.5); IMMATURE GRANULOCYTES 0.3 % (0-5); MCH 28.3 pg (26.0-34.0); MCHC 31.4 g/dL (31.0-37.0); MCV 90.3 fL (80.0-100.0); MEAN PLATELET VOLUME 8.6 fL (7.4-10.4); MONOCYTES 14.5 % (2-11); NEUTROPHILS 51.7 % (40-80); PLATELET COUNT 292 10x3/uL (130-400); RBC 3.92 10x6/uL (4.20-6.10); RDW 13.4 % (11.5-14.5); WBC 6.3 10x3/uL (4.8-10.8)
[2019-07-05 07:07] LABS: ANION GAP 9.7 mmol/L (8-16); CALCIUM 9.2 mg/dL (8.5-10.1); CARBON DIOXIDE 31.8 mmol/L (21.0-32.0); CREATININE - SERUM 1.5 mg/dL (0.6-1.3); POTASSIUM - SERUM 4.5 mmol/L (3.5-5.1)
--- NOTE | 2019-07-05 08:00 | NUR ---
ASSESSMENT PER FLOW SHEET. PT IS WITHOUT DISTRESS.MONITOR FOR NEEDS.CALL LIGHT IN REACH
[2019-07-05 08:54] VITALS: BP 110/70
[2019-07-05 13:13] VITALS: BP 114/75
[2019-07-05 16:36] VITALS: BP 112/79
--- NOTE | 2019-07-05 19:00 | NUR ---
BEDSIDE REPORT RECEIVED AND CARE OF PT ASSUMED. IV TO LEFT FA LEAKING. REMOVED WITH CATHETER TIP INTACT. RE-SITED TO LEFT FA USING 20 GUAGE CATHETER IN ONE STICK. IV FLUIDS RE-STARTED. WILL MONITOR FOR NEEDS
--- NOTE | 2019-07-05 19:48 | NUR ---
REMAINS WITHOUT NEEDS,WITHOUT CHANGE.CONT PLAN OF CARE
[2019-07-05 20:31] VITALS: BP 114/72
--- NOTE | 2019-07-05 20:39 | NUR ---
HS MEDICATIONS GIVEN. FSBS 162 THIS CHECK. PT DECLINES SLIDING SCALE INSULIN. WILL CONTINUE TO MONITOR FOR NEEDS.
[2019-07-06 00:57] VITALS: BP 120/72
[2019-07-06 05:08] VITALS: BP 104/66
[2019-07-06 05:45] LABS: C-REACTIVE PROTEIN 0.6 mg/dL (0.0-0.9); CALCIUM 8.9 mg/dL (8.5-10.1); CARBON DIOXIDE 31.8 mmol/L (21.0-32.0); CREATININE - SERUM 1.2 mg/dL (0.6-1.3)
[2019-07-06 05:50] LABS: POTASSIUM - SERUM 3.8 mmol/L (3.5-5.1)
[2019-07-06 06:12] LABS: BASOPHILS 0.3 % (0-2); EOSINOPHILS 2.7 % (0-7); HEMATOCRIT 34.3 % (42.0-54.0); HEMOGLOBIN 10.7 g/dL (13.5-17.5); IMMATURE GRANULOCYTES 0.4 % (0-5); LYMPHOCYTES 30.1 % (15-50); MCH 27.9 pg (26.0-34.0); MCHC 31.2 g/dL (31.0-37.0); MCV 89.3 fL (80.0-100.0); MEAN PLATELET VOLUME 8.6 fL (7.4-10.4); MONOCYTES 12.8 % (2-11); NEUTROPHILS 53.7 % (40-80); PLATELET COUNT 313 10x3/uL (130-400); RBC 3.84 10x6/uL (4.20-6.10); RDW 13.3 % (11.5-14.5); WBC 7.7 10x3/uL (4.8-10.8)
[2019-07-06 06:36] LABS: ERYTHROCYTE SEDIMENTATION RATE 12 mm/hr (0-15)
--- NOTE | 2019-07-06 07:30 | NUR ---
PT RESTING IN BED WITH EYES CLOSED. AWAKENS WITH NAME CALLED. RESP EVEN AND UNLABORED. VOICES PAIN 5/10 AT THIS TIME. IV TO LEFT FOREARM WITH 1/2 NS @ 100ML/HR INFUSING VIA PUMP. SITE WITHOUT REDNESS OR EDEMA. PT DENIES FURTHER NEEDS A THIS TIME. CL WITHIN REACH. ENCOURAGED TO CALL WITH NEEDS. CONTINUE POC
[2019-07-06] MEDS ORDERED: HYDROCODON-ACE1 EA10 PO (07:58)
[2019-07-06 08:24] VITALS: BP 116/82
--- NOTE | 2019-07-06 10:50 | OP ---
PATIENT NAME: JOCELIN LAWRENCE JR MEDICAL RECORD: [id number] :74 LOCATION:[id number] ADMISSION DATE:07/02/19 SURGEON: DARIAN PALACIO MD DATE OF OPERATION: 07/02/2019 PREOPERATIVE DIAGNOSIS: Infected right knee. POSTOPERATIVE DIAGNOSIS: Infected right knee. PROCEDURES: Arthroscopic I&D of infected right knee to include synovectomy complete as well as irrigational debridement. SURGEON: Darian Palacio MD FULFILLMENT REPRESENTATIVE: DERRICK Bueno INTRAOPERATIVE COMPLICATIONS: None. SUMMARY OF PATHOLOGIC FINDINGS: The patient did have the suprapopliteal phlegmon as well as phlegmon in the medial and lateral gutters. Previous cultures had shown the patient to have 2 different types of Staph organisms. INDICATIONS: This is a 48-year-old gentleman. He has been very difficult to get to agree to further operative intervention. At this point, we told him that he needed to come in for debridement as well as IV antibiotics. This has taken several weeks to get him to agree to. In spite of the fact that he had culture Gram-positive organisms in his right knee, what was found today at the operative intervention was consistent with underlying infection in his knee. No meniscal tearing was noted. No substantial chondromalacia was noted; however, he did have intra-articular phlegmon. OPERATIVE SUMMARY IN DETAIL: After obtaining the appropriate preoperative orthopedic surgery consent as well as anesthetic consultation, evaluation and clearance, the patient was brought to the operating room and placed on operating table in supine position. After general laryngeal mask airway was administered, tourniquet was placed on the proximal aspect of the right lower extremity. Right lower extremity was elevated, it was not exsanguinated, tourniquet was inflated to 350 mmHg. Routine inferolateral portal was established followed by superomedial portal. At the time of portal entry, synovial fluid was obtained for synovial fluid analysis, aerobic and anaerobic culture along with AFP and fungal. These were sent to the laboratory thusly. At this point, the inferolateral portal was established and serial and sequential debridement as well as synovectomy was done for the entire knee to include debridement under and above both medial and lateral meniscus as well as the medial and lateral meniscus as well as the suprapopliteal recess. All phlegmon appearing material was taken down and approximately 12 liters of fluid was irrigated through the knee in entirety. At this point, arthroscopy portals were closed in routine interrupted fashion. Sterile dressings were applied. Tourniquet was deflated. The patient was awakened and taken to the recovery room in stable condition. All final needle and sponge counts were correct. TRANSINT:[id number] Voice Confirmation ID: [id number] DOCUMENT ID: [id number] OPERATIVE REPORT [id number] JOCELIN LAWRENCE JR, MD, DARIAN KIM at 1050 CC: [id number] DICTATION DATE: 07/03/19 1058 SIGNAL WORKER: 07/03/19 1215 ADM IN [facility] [address] [place] [id number]
--- NOTE | 2019-07-06 12:03 | MORECARE ---
CASE MANAGEMENT DISCHARGE SUMMARY PATIENT: JOCELIN LAWRENCE JR UNIT: [id number] ADM DATE: 07/02/19 AGE: 48 : 74 SEX: M ROOM/BED: D.2215 AUTHOR: AZ MISHRA PHYSICIAN: REFERRING PHYSICIAN: DARIAN PAALCIO MD DATE OF SERVICE: 07/06/19 Discharge Plan Patient Name: JOCELIN LAWRENCE Facility: [facility]:[place] : 1970 Planned Disposition: Home Health Service Anticipated Discharge Date: Discharge Date: Expected LOS: Initial Reviewer: [email or web address] Initial Review Date: 07/03/2019 Generated: 07/06/19 1:03 pm DCPIA - Discharge Planning Initial Assessment Updated by [email or web address]: Angelita Stanley on 07/06/19 12:02 pm * Is the patient Alert and Oriented? Yes * PCP DAMIR VELASCO * [facility] * Preadmission Environment Home with Family * ADLs Independent * Equipment None * List name and contact numbers for known caregivers / representatives who currently or will assist patient after discharge: JASSON LAWRENCE [phone] * Verbal permission to speak to the caregivers and representatives has been obtained from the patient. N/A * Community resources currently utilized None * Additional services required to return to the preadmission environment? Yes * Can the patient safely return to the preadmission environment? Yes * Has this patient been hospitalized within the prior 30 days at any hospital? No External Providers External Provider: [facility] Next Contact Date: Service Request Date: Service Type: Resolution: Reviewer: Comments: External Provider: [facility] Next Contact Date: Service Request Date: Service Type: Resolution: Reviewer: Comments: Coverage Notice Reviewer: [id number] - Angelita Stanley Notice Issued Date-Time: 07/06/2019 11:05 Notice Type: IM Discharge Notice Notice Delivered To: Patient Relationship to Patient: Repeat Photocomposing Machine Operator Name: Delivery Method: HAND - Hand Delivered Dayanara Days: Prior Verbal Notification: Recipient Understood Notice: Yes Recipient Signature: Yes Med Rec Note Co-signed by Attending: Coverage Notice Comment: Patient Name: JOCELIN LAWRENCE Page [id number] at 1203 All edits/amendments must be made on the electronic document DICTATION DATE: 07/06/191202 CARE MANAGEMENT COORDINATOR: YOUSIF 07/06/191202 RPT#: [id number] DC DATE: STATUS: ADM IN [facility] [address] [place] [address] END OF REPORT
[2019-07-06] MEDS ORDERED: VANCOMYCIN 1 GM/1 G1 IV (12:13)
--- NOTE | 2019-07-06 12:19 | MORECARE ---
CASE MANAGEMENT DISCHARGE SUMMARY PATIENT: JOCELIN LAWRENCE JR UNIT: [id number] ADM DATE: 07/02/19 AGE: 48 : 74 SEX: M ROOM/BED: D.2215 AUTHOR: DANICA,DOC PHYSICIAN: REFERRING PHYSICIAN: DARIAN PALACIO MD DATE OF SERVICE: 07/06/19 Discharge Plan Patient Name: JOCELIN LAWRENCE Facility: [facility]:[place] : 1970 Planned Disposition: Home Health Service Anticipated Discharge Date: Discharge Date: Expected LOS: Initial Reviewer: [email or web address] Initial Review Date: 07/03/2019 Generated: 07/06/19 1:18 pm Comments DCP- Discharge Planning Updated by [email or web address]: Angelita Stanley on 07/06/19 11:[address] Patient Name: JOCELIN LAWRENCE Admission Status: Elective Accout number: [id number] Admission Date: 07-02-2019 : 1970 Admission Diagnosis: Attending: DARIAN PALACIO Current LOS: 4 Anticipated DC Date: Planned Disposition: Home Health Service Primary Insurance: MEDICARE A & B Discharge Planning Comments: CM met with patient to complete initial dc planning assessment. CM educated patient on the CM role and verbal consent given by patient to complete assessment. Patient lives at home with his where he is independent with his care. 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 At discharge patient plans to return home with IV abx and home health and feels this is a safe discharge. Patient did not have a preference on or Infusion company. Sent referral to [facility]. Will await prices from [facility]. [facility] signed for no preference. [facility] served and explained. Patient denied known discharge needs at this time. CM will continue to follow and will assist as needed with dc plans/needs. Beauty Advisor: Angelita Stanley DCPIA - Discharge Planning Initial Assessment Updated by [email or web address]: Angelita Stanley on 07/06/19 12:02 pm * Is the patient Alert and Oriented? Yes * PCP DAMIR VELASCO * [facility] * Preadmission Environment Home with Family * ADLs Independent * Equipment None * List name and contact numbers for known caregivers / representatives who currently or will assist patient after discharge: JASSON LAWRENCE [phone] * Verbal permission to speak to the caregivers and representatives has been obtained from the patient. N/A * Community resources currently utilized None * Additional services required to return to the preadmission environment? Yes * Can the patient safely return to the preadmission environment? Yes * Has this patient been hospitalized within the prior 30 days at any hospital? No Coverage Notice Reviewer: [id number] Jun Stanley Notice Issued Date-Time: 07/06/2019 11:05 Notice Type: IM Discharge Notice Notice Delivered To: Patient Relationship to Patient: Audio Video Mechanic Name: Delivery Method: HAND - Hand Delivered Dayanara Days: Prior Verbal Notification: Recipient Understood Notice: Yes Recipient Signature: Yes Med Rec Note Co-signed by Attending: Coverage Notice Comment: Last DP export: 07/06/19 11:03 Patient Name: JOCELIN LAWRENCE Page [id number] at 1219 All edits/amendments must be made on the electronic document DICTATION DATE: 07/06/191217 VIDEO GAME ENGINEER: YOUSIF 07/06/191217 RPT#: [id number] DC DATE: STATUS: ADM IN [facility] [address] [place] [address] END OF REPORT
[2019-07-06 13:33] VITALS: BP 106/78
--- NOTE | 2019-07-06 14:00 | MORECARE ---
CASE MANAGEMENT DISCHARGE SUMMARY PATIENT: JOCELIN LAWRENCE JR UNIT: [id number] ADM DATE: 07/02/19 AGE: 48 : 74 SEX: M ROOM/BED: D.2215 AUTHOR: DANICADOC PHYSICIAN: REFERRING PHYSICIAN: DARIAN PALACIO MD DATE OF SERVICE: 07/06/19 Discharge Plan Patient Name: JOCELIN LAWRENCE Facility: [facility]:[place] : 1970 Planned Disposition: Home Health Service Anticipated Discharge Date: Discharge Date: Expected LOS: Initial Reviewer: [email or web address] Initial Review Date: 07/03/2019 Generated: 07/06/19 3:00 pm Comments DCP- Discharge Planning Updated by [email or web address]: Angelita Stanley on 07/06/19 12:[address] [facility] stated they could not accept him, referral sent to [facility] DCP- Discharge Planning Updated by [email or web address]: Angelita Stanley on 07/06/19 11:[address] Patient Name: JOCELIN LAWRENCE Admission Status: Elective Accout number: [id number] Admission Date: 07-02-2019 : 1970 Admission Diagnosis: Attending: DARIAN PALACIO Current LOS: 4 Anticipated DC Date: Planned Disposition: Home Health Service Primary Insurance: MEDICARE A & B Discharge Planning Comments: CM met with patient to complete initial dc planning assessment. CM educated patient on the CM role and verbal consent given by patient to complete assessment. Patient lives at home with his where he is independent with his care. 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 At discharge patient plans to return home with IV abx and home health and feels this is a safe discharge. Patient did not have a preference on HH or Infusion company. Sent referral to [facility] Will await prices from [facility] signed for no preference. [facility] served and explained. Patient denied known discharge needs at this time. CM will continue to follow and will assist as needed with dc plans/needs. Magneto Repairer: Angelita Stanley DCPIA - Discharge Planning Initial Assessment Updated by [email or web address]: Angelita Stanley on 07/06/19 12:02 pm * Is the patient Alert and Oriented? Yes * PCP DAMIR VELASCO * [facility] * Preadmission Environment Home with Family * ADLs Independent * Equipment None * List name and contact numbers for known caregivers / representatives who currently or will assist patient after discharge: JASSON LAWRENCE [phone] * Verbal permission to speak to the caregivers and representatives has been obtained from the patient. N/A * Community resources currently utilized None * Additional services required to return to the preadmission environment? Yes * Can the patient safely return to the preadmission environment? Yes * Has this patient been hospitalized within the prior 30 days at any hospital? No External Providers External Provider: [facility] Next Contact Date: Service Request Date: Service Type: Resolution: Reviewer: Comments: Coverage Notice Reviewer: [id number] Jun Stanley Notice Issued Date-Time: 07/06/2019 11:05 Notice Type: IM Discharge Notice Notice Delivered To: Patient Relationship to Patient: Welcome Center Attendant Name: Delivery Method: HAND - Hand Delivered Dayanara Days: Prior Verbal Notification: Recipient Understood Notice: Yes Recipient Signature: Yes Med Rec Note Co-signed by Attending: Coverage Notice Comment: Last DP export: 07/06/19 11:19 Patient Name: JOCELIN LAWRENCE Page [id number] at 1400 All edits/amendments must be made on the electronic document DICTATION DATE: 07/06/19 1400 PRIMING POWDER PREMIX BLENDER: YOUSIF 07/06/19 1400 RPT#: [id number] DC DATE: STATUS: ADM IN [facility] [address] [place] [address] END OF REPORT
--- NOTE | 2019-07-06 15:46 | MORECARE ---
CASE MANAGEMENT DISCHARGE SUMMARY PATIENT: JOCELIN LAWRENCE JR UNIT: [id number] ADM DATE: 07/02/19 AGE: 48 : 74 SEX: M ROOM/BED: D.2215 AUTHOR: DANICA,DOC PHYSICIAN: REFERRING PHYSICIAN: DARIAN PALACIO MD DATE OF SERVICE: 07/06/19 Discharge Plan Patient Name: JOCELIN LAWRENCE Facility: [facility]:[place] : 1970 Planned Disposition: Home Health Service Anticipated Discharge Date: Discharge Date: Expected LOS: Initial Reviewer: [id number] Initial Review Date: 07/03/2019 Generated: 07/06/19 4:46 pm Comments DCP- Discharge Planning Updated by [email or web address]: Angelita Stanley on 07/06/19 2:[address] [facility], hellen nguyen with [facility] will teach here at bedside DCP- Discharge Planning Updated by [email or web address]: Angelita Stanley on 07/06/19 12:[address] [facility] could not accept him, referral sent to [facility] DCP- Discharge Planning Updated by [email or web address]: Angelita Stanley on 07/06/19 11:[address] Patient Name: JOCELIN LAWRENCE Admission Status: Elective Accout number: [id number] Admission Date: 07-02-2019 : 1970 Admission Diagnosis: Attending: DARIAN PALACIO Current LOS: 4 Anticipated DC Date: Planned Disposition: Home Health Service Primary Insurance: MEDICARE A & B Discharge Planning Comments: CM met with patient to complete initial dc planning assessment. CM educated patient on the CM role and verbal consent given by patient to complete assessment. Patient lives at home with his where he is independent with his care. 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 At discharge patient plans to return home with IV abx and home health and feels this is a safe discharge. Patient did not have a preference on HH or Infusion company. Sent referral to [facility]. Will await prices from [facility]. [facility] signed for no preference. [facility] served and explained. Patient denied known discharge needs at this time. CM will continue to follow and will assist as needed with dc plans/needs. Superintendent Building: Angelita Stanley DCPIA - Discharge Planning Initial Assessment Updated by [email or web address]: Angelita Stanley on 07/06/19 12:02 pm * Is the patient Alert and Oriented? Yes * PCP DAMIR VELASCO * [facility] * Preadmission Environment Home with Family * ADLs Independent * Equipment None * List name and contact numbers for known caregivers / representatives who currently or will assist patient after discharge: JASSON LAWRENCE [phone] * Verbal permission to speak to the caregivers and representatives has been obtained from the patient. N/A * Community resources currently utilized None * Additional services required to return to the preadmission environment? Yes * Can the patient safely return to the preadmission environment? Yes * Has this patient been hospitalized within the prior 30 days at any hospital? No Coverage Notice Reviewer: [id number] - Angelita Stanley Notice Issued Date-Time: 07/06/2019 11:05 Notice Type: IM Discharge Notice Notice Delivered To: Patient Relationship to Patient: Supervisor Lump Room Name: Delivery Method: HAND - Hand Delivered Dayanara Days: Prior Verbal Notification: Recipient Understood Notice: Yes Recipient Signature: Yes Med Rec Note Co-signed by Attending: Coverage Notice Comment: Last DP export: 07/06/19 1:00 Patient Name: JOCELIN LAWRENCE Page [id number] at 1546 All edits/amendments must be made on the electronic document DICTATION DATE: 07/06/191545 WRINGER MACHINE OPERATOR: YOUSIF 07/06/191545 RPT#: [id number] ID DATE: STATUS: ADM IN [facility] [address] [place] [address] END OF REPORT
[2019-07-06 19:50] VITALS: BP 106/79
--- NOTE | 2019-07-06 20:00 | NUR ---
ASSESSMENT PER [employer]. DISCHARGED FORMS SIGNED PT [facility] WAITING ON HOME HEALTH NURSE TO DELIVER HIS MEDS.
--- NOTE | 2019-07-06 21:00 | NUR ---
HOME HEALTH NURSE HERE DELIVERED MEDS.
--- NOTE | 2019-07-06 21:10 | NUR ---
DRESSED AND IN W/C DISCHARGED HOME WITH PARENTS.
--- NOTE | 2019-07-07 14:03 | MORECARE ---
CASE MANAGEMENT DISCHARGE SUMMARY PATIENT: JOCELIN LAWRENCE JR UNIT: [id number] ADM DATE: 07/02/19 AGE: 48 : 74 SEX: M ROOM/BED: D.2215 AUTHOR: DANICA,DOC PHYSICIAN: REFERRING PHYSICIAN: DARIAN PALACIO MD DATE OF SERVICE: 07/07/19 Discharge Plan Patient Name: JOCELIN LAWRENCE Facility: [facility]:[place] : 1970 Planned Disposition: Home Health Service Anticipated Discharge Date: Discharge Date: 07/06/2019 Expected LOS: 0 Initial Reviewer: [email or web address] Initial Review Date: 07/03/2019 Generated: 07/07/19 3:03 pm Comments DCP- Discharge Planning Updated by [email or web address]: Angelita Stanley on 07/06/19 2:[address] [facility], hellen nguyen with [facility] will teach here at bedside DCP- Discharge Planning Updated by [email or web address]: Angelita Stanley on 07/06/19 12:[address] [facility] stated [facility] could not accept him, referral sent to [facility] DCP- Discharge Planning Updated by [email or web address]: Angelita Stanley on 07/06/19 11:[address] Patient Name: JOCELIN LAWRENCE Admission Status: Elective Accout number: [id number] Admission Date: 07-02-2019 : 1970 Admission Diagnosis: Attending: DARIAN PALACIO Current LOS: 4 Anticipated DC Date: Planned Disposition: Home Health Service Primary Insurance: MEDICARE A & B Discharge Planning Comments: CM met with patient to complete initial dc planning assessment. CM educated patient on the CM role and verbal consent given by patient to complete assessment. Patient lives at home with his where he is independent with his care. 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 At discharge patient plans to return home with IV abx and home health and feels this is a safe discharge. Patient did not have a preference on HH or Infusion company. Sent referral to [facility]. Will await prices from [facility]. [facility] signed for no preference. [facility] served and explained. Patient denied known discharge needs at this time. CM will continue to follow and will assist as needed with dc plans/needs. Solution Consultant: Angelita Stanley DCPIA - Discharge Planning Initial Assessment Updated by [email or web address]: Angelita Stanley on 07/06/19 12:02 pm * Is the patient Alert and Oriented? Yes * PCP DAMIR VELASCO * [facility] * Preadmission Environment Home with Family * ADLs Independent * Equipment None * List name and contact numbers for known caregivers / representatives who currently or will assist patient after discharge: JASSON LAWRENCE [phone] * Verbal permission to speak to the caregivers and representatives has been obtained from the patient. N/A * Community resources currently utilized None * Additional services required to return to the preadmission environment? Yes * Can the patient safely return to the preadmission environment? Yes * Has this patient been hospitalized within the prior 30 days at any hospital? No Coverage Notice Reviewer: [id number] - Angelita Stanley Notice Issued Date-Time: 07/06/2019 11:05 Notice Type: IM Discharge Notice Notice Delivered To: Patient Relationship to Patient: Classroom Assistant Name: Delivery Method: HAND - Hand Delivered Dayanara Days: Prior Verbal Notification: Recipient Understood Notice: Yes Recipient Signature: Yes Med Rec Note Co-signed by Attending: Coverage Notice Comment: Last DP export: 07/06/19 2:46 Patient Name: JOCELIN LAWRENCE Page [phone] at 1403 All edits/amendments must be made on the electronic document DICTATION DATE: 07/07/19 140 MOLD FINISHER: YOUSIF 07/07/19 1403 RPT#: [id number] DC DATE:07/06/19 STATUS: DIS IN [facility] [address] [place] [address] END OF REPORT
== END 2019-07-06 21:10 | disposition home health service (06) | DRG 487 ==
LOC: D.MS 08:43 → D.OPS 08:43 → D.MS 11:52 → D.OPS 11:53 → D.MS 11:54 → D.PAN 17:00 → D.OPS 17:00 → D.MS 07-06 21:10
PROVIDERS: Anesthesiology; Internal Medicine Nephrology; ADMIT Orthopaedic Surgery; ATTEND Orthopaedic Surgery
PROC: 0SBC4ZZ Excision of Right Knee Joint, Percutaneous Endoscopic Approach (ICD-10-PCS; principal; 2019-07-02 11:15)
PROC: 05HY33Z Insertion of Infusion Device into Upper Vein, Percutaneous Approach (ICD-10-PCS; 2019-07-06)
DX: M00.9 Pyogenic arthritis, unspecified (principal); E11.40 Type 2 diabetes mellitus with diabetic neuropathy, unspecified; I25.10 Atherosclerotic heart disease of native coronary artery without angina pectoris; F41.8 Other specified anxiety disorders; I12.9 Hypertensive chronic kidney disease with stage 1 through stage 4 chronic kidney disease, or unspecified chronic kidney disease; E11.22 Type 2 diabetes mellitus with diabetic chronic kidney disease; N18.9 Chronic kidney disease, unspecified; D64.9 Anemia, unspecified

== ENCOUNTER → 2019-07-13 11:38 | Outpatient (CLI) | payer MEDICARE ==
[2019-07-02 14:13] VITALS: BMI 32.9
[~2019-07-13 11:38] MED LIST changes: +BUSPIRONE HCL7.5 MG PO; +SEROQUEL200 MG PO; +VANCOMYCIN 1 GM/1 G1 IV
[2019-07-13 11:59] LABS: BASOPHILS 0.3 % (0-2); EOSINOPHILS 3.7 % (0-7); HEMATOCRIT 33.9 % (42.0-54.0); HEMOGLOBIN 10.6 g/dL (13.5-17.5); IMMATURE GRANULOCYTES 0.1 % (0-5); LYMPHOCYTES 20.2 % (15-50); MCH 28.2 pg (26.0-34.0); MCHC 31.3 g/dL (31.0-37.0); MCV 90.2 fL (80.0-100.0); MEAN PLATELET VOLUME 8.9 fL (7.4-10.4); NEUTROPHILS 64.7 % (40-80); PLATELET COUNT 266 10x3/uL (130-400); RBC 3.76 10x6/uL (4.20-6.10); RDW 14.3 % (11.5-14.5); WBC 7.8 10x3/uL (4.8-10.8)
[2019-07-13 12:07] LABS: C-REACTIVE PROTEIN 0.8 mg/dL (0.0-0.9); CREATININE - SERUM 1.6 mg/dL (0.6-1.3); VANCOMYCIN - TROUGH 18.9 ug/mL (10.0-20.0)
[2019-07-13 12:42] LABS: ERYTHROCYTE SEDIMENTATION RATE 24 mm/hr (0-15)
== END | disposition home or self-care (01) ==
LOC: D.LABREF 11:38
PROVIDERS: ATTEND Orthopaedic Surgery
DX: M00.069 Staphylococcal arthritis, unspecified knee (principal)

== ENCOUNTER → 2020-07-08 14:06 | Outpatient (CLI) | payer MEDICARE ==
[2019-07-02 14:13] VITALS: BMI 32.9
== END | disposition home or self-care (01) ==
LOC: D.NM 07-05 11:30
DX: R15.9 Full incontinence of feces (principal); R11.2 Nausea with vomiting, unspecified